=== PATIENT | female | born 1990 | race Caucasian/White ===

== ENCOUNTER 2017-07-29 07:48 | Inpatient (IN) | payer OTHER ==
--- NOTE | 2017-07-29 09:32 | PTEDU ---
Patient Name: ALBERTO DUNCAN MERON HUNT ALBERTO selected video: Never Ever Shake a Baby to view on 07/29/2017 at 9:32:05 AM from [id number]
[2017-07-29] MEDS ORDERED: Dinoprostone* 10 MG VAG.SUPP VAGINAL ONE (10:32)
--- NOTE | 2017-07-29 12:00 | HP ---
General Information - General Information Maternal Age: 27 Grav: 1 Para: 0 SAB: 0 IEA: 0 Estimated Due Date: 07/21/17 Determined By: LMP Gestational Age in Weeks and Days: 41 Weeks and 1 Days Maternal Blood Type and Rh: A Positive - Results this Serology/RPR Result: Non-Reactive Rubella Result: Immune HBsAg Result: Negative HIV Result: Negative GBS Culture Result: Negative Past Medical History Delivery History: See Records Delivery History Comment: primiparous Pertinent Past Medical History: Non-Contributory Pertinent Past Surgical History: See Records - Rhinoplasty 2016 Pertinent Family History: See Records - Pt's mother w/ PE at age 38 while on COCs, was smoker - Antepartal Records Antepartal Records: Reviewed, Uncomplicated Review of Systems CV Complaint: No Respiratory: Shortness of Breath: No Gastrointestinal: No Nausea/Vomiting, Normal Bowel Movement Genitourinary: No Dysuria, No Bleeding, No Leaking Fluid Musculoskeletal: No Complaint Neurological: No Headache, No Visual Changes Movement: Normal Exam Allergies/Adverse Reactions: Allergies No Known Allergies Allergy (Verified 04/03/17 15:56) Vital Signs 07/29/17 08:25 Temperature 98.6 F Pulse Rate 93 Respiratory 17 Rate Blood Pressure 123/72 (mmHg) O2 Sat by Pulse 99 Oximetry - Measurements Height: 5 ft 2 in Weight: 79.379 kg Weight in lbs: 175 Body Mass Index (BMI): 32.0 Pre- Weight: 63.503 kg Weight Gained This : 35 lbs and 0 ozs - Exam Abdomen: No Upper Quadrant Pain Breast: Breast Exam Deferred CVA: No CVA Tenderness Extremities: No Edema Heart: Normal Rhythm/Heart Sounds HEENT: No Significant Findings Lungs: Clear Bilaterally Rectal: Rectal Exam Deferred Targeted Exam Findings See L&D Outpatient Visit Provider Note for Findings: N/A Estimated Weight: 8# Cervical Exam: 1cm Effacement: 50% Station: -2 Presenting Part: Vertex Membrane Status: Intact Bleeding/Discharge: None EFM Findings - External Monitor Findings Baseline Heart Rate: 135 External Monitor Findings: Accelerations Present, No Pattern of Variable or Late Decelerations, Variability Moderate, Baseline Stable Contractions: Irregular, Mild, 45-90 Seconds Assessment/Plan - Reason for Visit Reason for Visit: Post-dates , scheduled cervical ripening/ IOL - Obstetrical Risk Factors Obstetrical Risk Factors: Post-Dates - Plan Plan: Cervical Ripening - Date/Time of Admission Date of Admission: 07/29/17 Time of Admission: 09:00
[2017-07-29] MEDS ORDERED: diPHENhydraMINE PO* 50 MG PO ONE (23:18)
[2017-07-29] MEDS ORDERED: diPHENhydraMINE PO* 50 MG ONE (23:27)
[2017-07-30] MEDS ORDERED: Oxytocin in LR* 20 UNITS/1,000 ML BAG IVPB SCH (09:00)
[2017-07-30 10:03] LABS: ABS Basophils 0 10^3/ul (0-0.2); ABS Eosinophils 0.1 10^3/ul (0-0.6); ABS Lymphocytes 1.3 10^3/ul (1.0-4.8); ABS Monocytes 0.4 10^3/ul (0-0.8); ABS Neutrophils 8.6 10^3/ul (1.5-7.7); ABS Nucleated RBC 0 10^3/ul; Eosinophil % 0.7 % (0-6); Hematocrit 37 % (35-47); Hemoglobin 12.8 g/dl (12.0-16.0); Lymphocyte % 12.3 % (25-47); Mean Corpuscular HGB Conc 34 g/dl (31-36); Mean Corpuscular Hemoglobin 31 pg (27-31); Mean Corpuscular Volume 91 fL (80-97); Mean Platelet Volume 8.7 um3 (7.4-10.4); Nucleated Red Blood Cells % 0; Platelet Count 154 10^3/ul (150-450); Red Blood Count 4.09 10^6/ul (4.0-5.4); Red Cell Distribution Width 13 % (10.5-15); White Blood Count 10.4 10^3/ul (3.5-10.8)
[2017-07-30] MEDS ORDERED: OBEPIDURAL* 250 ML EPIDURAL ONE (23:06)
[2017-07-30] MEDS ORDERED: OBEPIDURAL* 250 ML EPIDURAL SCH (23:45)
[2017-07-30] MEDS ORDERED: EPHEDrine (Pressors)* 50 MG/ML VIAL IV PUSH PRN ×2 (23:55)
[2017-07-30] MEDS ORDERED: Sodium Citrate/Citric Acid* 15 ML UDC PO PRN (23:55)
[2017-07-30] MEDS ORDERED: Famotidine TAB* 20 MG PO PRN (23:55)
[2017-07-30] MEDS ORDERED: Phenylephrine IV* 40 MCG/ML 10 ML SYRINGE IV PUSH PRN ×2 (23:55)
[2017-07-31] MEDS ORDERED: Ondansetron ODT TAB* 4 MG PO PRN (01:10)
[2017-07-31] MEDS ORDERED: Ondansetron ODT TAB* 4 MG ONE (01:13)
[2017-07-31] MEDS ORDERED: Lidocaine 2% EPI 1:200000 MPF*10-20 ML VIAL ONE (15:38)
[2017-07-31] MEDS ORDERED: Sodium Bicarbonate 8.4% SYR* 10 ML SYRINGE ONE (15:38)
[2017-07-31] MEDS ORDERED: Dexamethasone IV* 4 MG/ML 1 ML (4 MG) ONE (15:39)
[2017-07-31] MEDS ORDERED: OXYTOCIN* 10 UNITS/ML 1 ML VIAL ONE (15:39)
[2017-07-31] MEDS ORDERED: Ondansetron INJ* 2 MG/ML VIAL ONE (15:39)
[2017-07-31] MEDS ORDERED: NS 0.9% 50 ML* 50 ML with ceFOXitin(*) 2 GM IVPB ONE ×2 (16:00)
[2017-07-31] MEDS ORDERED: Naloxone* 0.4 MG/ML 1 ML VIAL IV PRN ×2 (16:38)
[2017-07-31] MEDS ORDERED: fentaNYL* 50 MCG/ML 2 ML VIAL (100 MCG VIAL) IV PRN (16:38)
[2017-07-31] MEDS ORDERED: Morphine PF AMP (0.5MG/ML)* 5 MG/10 ML AMP ONE (16:39)
[2017-07-31] MEDS ORDERED: Ondansetron INJ* 2 MG/ML VIAL IV PRN (16:43)
[2017-07-31] MEDS ORDERED: DiMENhydriNATE IV* 50 MG/ML VIAL IV PUSH PRN (16:43)
[2017-07-31] MEDS ORDERED: Ketorolac INJ* 30 MG/ML 1 ML VIAL IV PRN (16:43)
[2017-07-31] MEDS ORDERED: Nalbuphine* 20 MG/ML 1 ML VIAL IV PRN ×2 (16:43)
[2017-07-31] MEDS ORDERED: Scopolamine 1.5 mg* PATCH TRANSDERM PRN (16:43)
[2017-07-31] MEDS ORDERED: oxyCODONE/Acetamin 5/325 MG* TAB PO PRN ×2 (16:43)
[2017-07-31] MEDS ORDERED: Dibucaine 1% 28.35 GM TUBE PR PRN (17:32)
[2017-07-31] MEDS ORDERED: Acetaminophen TAB* 325 MG PO PRN (17:32)
[2017-07-31] MEDS ORDERED: Glycerin ADULT SUPP PR PRN (17:32)
[2017-07-31] MEDS ORDERED: Witch Hazel PAD* JAR TOPICAL PRN (17:32)
[2017-07-31] MEDS ORDERED: Ibuprofen TAB* 600 MG ONE (19:28)
[2017-07-31] MEDS: Ibuprofen TAB* 600 MG PO SCH (19:29)
[2017-08-01] MEDS ORDERED: Zolpidem TAB* 5 MG PO PRN (08:00)
[2017-08-01] MEDS ORDERED: oxyCODONE/Acetamin 5/325 MG* TAB PO PRN (08:00)
[2017-08-01] MEDS ORDERED: Ferrous Gluconate TAB* 324 MG TAB PO SCH (09:00)
[2017-08-01 09:09] LABS: ABS Basophils 0 10^3/ul (0-0.2); ABS Eosinophils 0 10^3/ul (0-0.6); ABS Lymphocytes 1.2 10^3/ul (1.0-4.8); ABS Monocytes 0.7 10^3/ul (0-0.8); ABS Nucleated RBC 0 10^3/ul; Eosinophil % 0.1 % (0-6); Hematocrit 32 % (35-47); Lymphocyte % 7.3 % (25-47); Mean Corpuscular HGB Conc 35 g/dl (31-36); Mean Corpuscular Hemoglobin 32 pg (27-31); Mean Corpuscular Volume 91 fL (80-97); Mean Platelet Volume 8.4 um3 (7.4-10.4); Nucleated Red Blood Cells % 0; Platelet Count 154 10^3/ul (150-450); Red Blood Count 3.47 10^6/ul (4.0-5.4); Red Cell Distribution Width 13 % (10.5-15)
[2017-08-01] MEDS: Docusate CAP* 100 MG PO SCH ×4 (09:09→20:54)
[2017-08-01] MEDS: Ibuprofen TAB* 600 MG PO SCH (09:10)
[2017-08-01] MEDS: Simethicone TAB* 80 MG TAB.CHEW PO SCH ×4 (09:10→20:54)
[2017-08-01] MEDS: oxyCODONE/Acetamin 5/325 MG* TAB PO PRN ×3 (10:10→20:54)
[2017-08-01] MEDS: Ibuprofen TAB* 600 MG PO PRN (16:15)
--- NOTE | 2017-08-01 19:09 | OP ---
DATE OF OPERATION: 07/31/17 - ROOM #102 DATE OF : 89 SURGEON: Dayna Avalos MD STORE CLERK CASHIER: Ada Kelly CNM PRE-OP DIAGNOSES: Intrauterine gestation at 41+ weeks gestational age, failed induction of labor with arrest of dilation. POST-OP DIAGNOSES: Intrauterine gestation at 41+ weeks gestational age, failed induction of labor with arrest of dilation. OPERATIVE PROCEDURE: Primary lower transverse section. ESTIMATED BLOOD LOSS: 700 mL. FLUIDS: Crystalloid. DRAINS: Shelby catheter with clear urine in the tube after the procedure. COMPLICATIONS: None. INDICATIONS: The patient underwent induction of labor at 41+ weeks. Two days ago, she underwent cervical ripening and proceeded to receive Pitocin. She was on Pitocin for close to 4 hours with multiple re-dosing of her epidural to achieve adequate pain control and at that point without any cervical change, she desired a primary section. Discussion was had with the patient reviewing the risks of the including infection, bleeding, injury to nearby organs and pain. Consent was signed and questions were answered. FINDINGS: Male infant, weight 9 pounds 3 ounces, Apgars 8 and 8. Normal- appearing placenta. Normal uterus, ovaries, and tubes. DESCRIPTION OF PROCEDURE: The patient was taken to the operating room where her epidural anesthesia was used and was found to be adequate. She was prepped and draped in the dorsal supine position with a leftward tilt. SCDs were placed on her legs and a Shelby catheter was already in her bladder. A time-out was performed. A Pfannenstiel skin incision was then made with a scalpel and carried down to the underlying layer of fascia with sharp dissection. The fascia was incised on either side of the midline and the fascial incision was extended laterally with the Ge scissors. The inferior edge of the incision was grasped with Vianca clamps, tented up, and dissected down with a combination of sharp and blunt dissection. Then the superior edge of the fascial incision was grasped with Vianca clamps, tented up, and dissected down with a combination of sharp and blunt dissection. The rectus muscles were in the midline and the peritoneum was entered bluntly. The peritoneal incision was extended laterally with a combination of sharp and blunt dissection. The bladder blade was inserted and a transverse incision was made in the lower uterine segment with the scalpel. This incision was extended superiorly and inferiorly with blunt pressure. The 's head was brought out of the pelvis and delivered through the incision followed by the shoulders and the rest of the body. The nose and mouth were suctioned with a bulb suction by the orthopaedic nurse. The cord was clamped x2 and cut after 30 seconds and the baby was handed to the orthopaedic nurse. Cord blood was collected. The placenta delivered with fundal massage and gentle cord traction. The uterus was exteriorized and covered with a moist flap. The uterus was cleared of clots and debris. The uterine incision was closed with 0 Vicryl in a running locked fashion with the second layer of suture imbricating the first. Good hemostasis was noted at this time. The abdomen was irrigated and the uterus was placed back into the abdominal cavity. The incision was inspected once again and good hemostasis was noted. The peritoneum was closed with 3-0 Vicryl in a running unlocked fashion. The fascia was closed with 0 Vicryl in a running unlocked fashion. Again, hemostasis was noted prior to closure and then the skin was closed with 4-0 Monocryl in a running subcuticular fashion. The incision was cleaned. Mastisol and Steri-Strips were placed and a dressing was placed. The patient was moved to the stretcher and taken to the recovery room in stable condition. [id number] #: [id number] CINDI
[2017-08-02] MEDS: Ibuprofen TAB* 600 MG PO PRN ×3 (03:08→17:24)
[2017-08-02] MEDS: oxyCODONE/Acetamin 5/325 MG* TAB PO PRN ×2 (03:09→17:23)
[2017-08-02] MEDS: Docusate CAP* 100 MG PO SCH ×3 (09:04→21:02)
[2017-08-02] MEDS: Simethicone TAB* 80 MG TAB.CHEW PO SCH ×3 (09:05→21:02)
[2017-08-03] MEDS: Ibuprofen TAB* 600 MG PO PRN ×2 (00:11→08:00)
[2017-08-03] MEDS: oxyCODONE/Acetamin 5/325 MG* TAB PO PRN (00:12)
[2017-08-03 08:06] VITALS: BP 112/58
== END 2017-08-03 10:10 | disposition home or self-care (01) | DRG 766 ==
LOC: MCHOBOUT 07:48 → MCHOB 09:08
PROVIDERS: ADMIT Midwife; ATTEND Midwife
PROC: 10D00Z1 Extraction of Products of Conception, Low, Open Approach (ICD-10-PCS; principal; 2017-07-29)
PROC: 3E0P7VZ Introduction of Hormone into Female Reproductive, Via Natural or Artificial Opening (ICD-10-PCS; 2017-07-29)
PROC: 10907ZC Drainage of Amniotic Fluid, Therapeutic from Products of Conception, Via Natural or Artificial Opening (ICD-10-PCS; 2017-07-29)
PROC: 4A1HXCZ Monitoring of Products of Conception, Cardiac Rate, External Approach (ICD-10-PCS; 2017-07-29)
PROC: 10H07YZ Insertion of Other Device into Products of Conception, Via Natural or Artificial Opening (ICD-10-PCS; 2017-07-29)
PROC: 4A1H7CZ Monitoring of Products of Conception, Cardiac Rate, Via Natural or Artificial Opening (ICD-10-PCS; 2017-07-29)
DX: O48.0 Post-term pregnancy (principal); Z37.0 Single live birth; Z3A.41 41 weeks gestation of pregnancy; O62.1 Secondary uterine inertia; O76 Abnormality in fetal heart rate and rhythm complicating labor and delivery
CPT/HCPCS: 36415; 84112; 85025; 86850; 86900; 86901; A9270-GY; J0694; J1100; J2405; J2590